=== PATIENT | female | born 1955 | race Two or more races ===

== ENCOUNTER 2024-03-19 07:33 | Outpatient (CLI) | payer OTHER | END 2024-03-19 07:39 | disposition home or self-care (01) | LOC: NUCLEAR 07:33 | PROVIDERS: ATTEND Neuromusculoskeletal Medicine & OMM | DX: G30.9 Alzheimer's disease, unspecified (principal); G31.09 Other frontotemporal neurocognitive disorder | CPT/HCPCS: 78803; A9557 ==